=== PATIENT | female | born 1985 | race Hispanic/Latino ===

== ENCOUNTER 2025-09-04 18:51 | Emergency (ER) | payer SELFPAY ==
[~2025-09-04] VITALS: Ht 154.9 cm; Wt 78.2 kg
[2025-09-04] MEDS: FAMOTIDINE 20MG TAB PO SCH (19:33)
[2025-09-04] MEDS ORDERED: FAMO-136 PO (19:57)
--- NOTE | 2025-09-04 19:58 | ERN ---
ED Note History of Present Illness Stated Complaint: INSECT BITE Chief Complaint: Insect Bite Time Seen by MD: 18:53 Time Seen by Midlevel: 18:53 Dictation: The patient is a 40-year-old female with a history of hysterectomy, appendectomy who presents to the emergency department with complaints of insect bite to the left outer thigh onset 11:30 a.m. patient reports that she does not know what bit her but reports she was outside. Patient reports he is up-to-date with the her tetanus and got it lasts year Allergies: Coded Allergies: No Known Drug Allergies (Unverified Allergy, Unknown, 09/04/25) Past Medical History Past Medical History: No Pertinent History Surgical History: Appendectomy, Hysterectomy Surgical History Other: D&C Family History: Negative Social History: Negative, Lives with family History: Not Applicable RN Note Reviewed/Agreed w/PFSH: Yes Review of System Dictation Constitutional: Negative for fever,chills, and weight loss Eyes: Negative for injury, pain,redness, and discharge ENT: Negative for injury,pain or swelling Cardiovascular: Negative for chest pain, palpitations, and edema Respiratory: Negative for shortness of breath, cough, and wheezing, Abdomen/GI: Negative for abdominal pain, nausea, vomiting, diarrhea, and constipation Back: Negative for injury and pain : Negative for injury, bleeding and discharge MS/Extremity: Negative for injury and deformity Skin: Positive for insect bite Neuro: Negative for headache, weakness, numbness, tingling, and seizure Psych: Negative for suicide ideation, homicidal ideation, and hallucinations Initial Vital Sign VS Vital Signs Date Time Temp Pulse Resp B/P (MAP) Pulse Ox O2 Delivery O2 Flow Rate FiO2 09/04/25 18:53 98.1 97 20 140/78 100 Room Air Physical Exam Dictation Vital Signs reviewed General Appearance: Alert, oriented x 3, no acute distress, well developed, nourished. Head and Face: non-traumatic. Eyes: PERRL, pink conjunctivas, eyelid no trauma, anterior chamber with arcus s enilis. Ears: Pinnas intact and no signs of trauma or erythema ear canals clear and no discharge TM no erythema Nose: No discharge, no bleeding. Oropharynx: Mouth normal, tongue pink. pharynx clear,no erythema, tonsils no exudates, no abscesses noted, mucous membrane moist Neck: Supple, non-tender, no thyromegaly, no masses, no JVD, no bruits Breast:Deferred Chest:No tenderness, no crepitus, no paradoxical movement, no retractions Lungs:Clear, well-ventilated, symmetric, no rales, no wheezing, no rhonchi, no stridor, good breath sounds bilaterally Heart: Regular rate, regular rhythm, no murmur, no gallops Vascular: no peripheral edema, Abdomen: Soft, positive bowel sounds, nondistended, no guarding, nontender, no rebound, no masses no hepatomegaly, no splenomegaly, no Paredes's sign, no hernias. Rectal: Deferred Genital: Deferred Neurological: Normal speech, motor function intact, sensory function intact Musculoskeletal: Neck nontender, full range of motion, back nontender, full range of motion, Extremities: nontender, full range of motion Skin: Color pink, dry, no turgor, no rash, no lacerations, no abrasions, no contusions.3cm erythema wheal no drainage. Lymphatic: Deferred Results (Laboratory/Radiology) Labs Reviewed?: Yes ED Course ED Course Orders Procedure Category Date Status Time Famotidine 20mg Tab PHA 09/04/25 In Process (Pepcid 20mg Tab) 19:30 Methylprednisolone PHA 09/04/25 In Process Succ 125mg (Solu-Medr 19:30 Current Medications Medications (Trade) Dose Ordered Sig/Natasha Route PRN Reason Start Time Stop Time Status Last Admin Dose Admin Famotidine (Pepcid 20mg Tab) 20 mg ONCE PO 09/04/25 19:30 09/04/25 23:30 09/04/25 19:33 Methylprednisolone Sodium Succinate (Solu-medROL 125MG) 125 mg ONCE IM 09/04/25 19:30 09/04/25 23:30 09/04/25 19:33 Vital Signs Date Time Temp Pulse Resp B/P (MAP) Pulse Ox O2 Delivery O2 Flow Rate FiO2 09/04/25 18:53 98.1 97 20 140/78 100 Room Air Medical Decision Making MDM The patient is a 40-year-old female with a history of hysterectomy, appendectomy who presents to the emergency department with complaints of insect bite to the left outer thigh onset 11:30 a.m. patient reports that she does not know what bit her but reports she was outside. Patient reports he is up-to-date with the her tetanus and got it lasts year There is a 3cm in diameter wheal, no obvious stinger, wound was cleaned. Keila ient given solumedrol and pepcid.She refused benadryl becasue she says that shes driving but she reports she has it at home. Patient otherwise in no acute distress, clear lung sounds.Patient instructed to continue to monitor for any signs of infection. Patient agrees with discharge planning. Differential diagnosis: Insect bite, cellulitis, allergic reaction, abscess There are no social concerns with this patient. DX & DISP Disposition: Discharge Departure Impression: Primary Impression: Insect bite Condition: Stable Scripts Famotidine (Pepcid) 20 Mg Tablet 1 TAB PO BID for 7 Days, #14 TAB 0 Refills Prov: MIKE JONES 09/04/25 Additional Instructions: Continue taking Benadryl at home, you can also apply hydrocortisone to the area. Continue to monitor for any signs of infection if symptoms do not improve. Monitor for any fevers, worsening erythema if any of these develop follow up with the your PCP for possibility of antibiotic. FOLLOW-UP WITH PRIMARY CARE PROVIDER IN 1 TO 2 DAYS. TAKE MEDICATIONS DIRECTED HERE IN THE EMERGENCY ROOM. OKAY TO CONTINUE HOME MEDICATIONS UNLESS OTHERWISE DISCUSSED DURING YOUR VISIT IN THE EMERGENCY ROOM TODAY. RETURN TO YOUR NEAREST EMERGENCY ROOM IF SYMPTOMS WORSEN OR IF THERE IS NO IMPROVEMENT. CALL 911 IF YOU NEED IMMEDIATE ASSISTANCE. TAKE TYLENOL [id number] NEEDED AND IF NO CONTRAINDICATIONS ARE PRESENT. INCREASE ORAL HYDRATION. A WOUND CULTURE OR URINE CULTURE WAS ORDERED HERE IN THE EMERGENCY ROOM DEPARTMENT PLEASE FOLLOW-UP WITH PRIMARY CARE PROVIDER AND ADVISE THEM TO GET REPEAT PORTS FROM OUR FACILITY. IF YOU HAD ANY MITRA WRAP/SPLINTS THAT WERE APPLIED HERE, PLEASE DO NOT REMOVE THEM UNTIL YOU SEE YOUR PRIMARY CARE OR SPECIALTY. Referrals: SELF,REFERRAL (PCP) Time of Disposition: 19:56 I have reviewed the case, and I agree with, Diagnosis and Plan MIKE JONES Sep 04, 2025 19:58
[2025-09-04 20:03] VITALS: BP 141/75; PULSE 88; RESP 17; TEMP 98.1; O2SAT 100
== END 2025-09-04 20:09 | disposition home or self-care (01) ==
LOC: EDH 18:51
DX: S70.362A Insect bite (nonvenomous), left thigh, initial encounter (principal); Z90.710 Acquired absence of both cervix and uterus; Z90.49 Acquired absence of other specified parts of digestive tract; W57.XXXA Bitten or stung by nonvenomous insect and other nonvenomous arthropods, initial encounter; Y93.89 Activity, other specified; Y92.89 Other specified places as the place of occurrence of the external cause; Y99.8 Other external cause status
CPT/HCPCS: 99283; 96372; J2919